=== PATIENT | male | born 1955 | race Caucasian/White ===

== ENCOUNTER 2016-10-23 07:36 | Inpatient (IN) | payer BC, OTHER ==
[~2016-10-23] VITALS: Ht 182.9 cm; Wt 81.6 kg
[2016-10-23] MEDS ORDERED: ALLO300T2 PO (07:48)
[2016-10-23] MEDS ORDERED: MELO15TA39 (07:48)
[2016-10-23] MEDS ORDERED: AMLO5TAB2 PO (07:48)
[2016-10-23] MEDS ORDERED: HYDR-3820 PO (07:48)
[2016-10-23] MEDS ORDERED: ENAL20TA PO (07:48)
--- NOTE | 2016-10-23 07:49 | ED Abdominal Pain ---
General Chief Complaint: Fever-Adult/Adol Stated Complaint: BACK ACHE,SWEAT,FEVER Source of Information: Patient, Family Exam Limitations: No Limitations History of Present Illness Time Seen By Provider: 08:10 Initial Comments This 61-year-old male presents with a 2 day history of fever and backache. The patient has had associated dysuria. The patient has had no associated headache or stiff neck, productive cough, chest pain or palpitations, blood in the stool or vomiting. The patient is under the care of Dr. Roman. The patient's significant past medical history includes hypertension and gout. Allergies and Home Medications Allergies Coded Allergies: No Known Drug Allergies (Unverified , 10/23/16) Home Medications Allopurinol 300 Mg Tablet, #90 (Reported) Amlodipine Besylate 5 Mg Tablet, #90 (Reported) Enalapril Maleate 20 Mg Tablet, #90 (Reported) Hydrocodone/Acetaminophen 1 Each Tablet, #60 (Reported) Meloxicam 15 Mg Tablet, #30 (Reported) Review of Systems Constitutional: No chills, fever, malaise EENTM: No Blurred Vision Respiratory: Denies Cough Cardiovascular: Denies Chest Pain Gastrointestinal: Denies Abdominal Pain Genitourinary: Burning, Discharge, Frequency, Denies Flank Pain Musculoskeletal: back pain Skin: No rash Psychiatric/Neurological: No Symptoms Reported Endocrine: No Symptoms Reported Hematologic/Lymphatic: No Symptoms Reported Past Vsqwilt-Glxict-Kfnlqq Hx Patient Social History Recent Foreign Travel: No Contact w/Someone Who Travel: No Reviewed Nursing Assessment Reviewed/Agree w Nursing PMH: Yes Physical Exam Vital Signs VS - Last 72 Hours, by Label 10/23/16 07:50 Temp 98.6 Pulse 103 Resp 18 B/P (MAP) 141/89 Capillary Refill : General Appearance: WD/WN, mild distress HEENT: PERRL/EOMI, normal ENT inspection Neck: non-tender, supple, normal inspection Respiratory: lungs clear, normal breath sounds, no respiratory distress Cardiovascular: normal peripheral pulses, regular rate, rhythm Gastrointestinal: normal bowel sounds Extremities: normal range of motion, non-tender, normal inspection Back: normal inspection, other (mild bilateral flank tenderness) Neurologic/Psychiatric: no motor/sensory deficits, alert, normal mood/affect, oriented x 3 Skin: normal color, warm/dry Focused Exam Lactic Acid Level Laboratory Tests Test 10/23/16 07:55 Lactic Acid Level 1.04 MMOL/L (0.50-2.00) Progress/Results/Core Measures Results/Orders Lab Results Laboratory Tests Test 10/23/16 07:55 10/23/16 08:10 Range/Units White Blood Count 21.9 H 4.3-11.0 10^3/uL Red Blood Count 4.73 4.35-5.85 10^6/uL Hemoglobin 14.6 13.3-17.7 G/DL Hematocrit 44 40-54 % Mean Corpuscular Volume 92 80-99 FL Mean Corpuscular Hemoglobin 31 25-34 PG Mean Corpuscular Hemoglobin Concent 33 32-36 G/DL Red Cell Distribution Width 12.9 10.0-14.5 % Platelet Count 180 130-400 10^3/uL Mean Platelet Volume 10.4 7.4-10.4 FL Neutrophils (%) (Auto) 85 H 42-75 % Lymphocytes (%) (Auto) 6 L 12-44 % Monocytes (%) (Auto) 9 0-12 % Eosinophils (%) (Auto) 0 0-10 % Basophils (%) (Auto) 0 0-10 % Neutrophils # (Auto) 18.6 H 1.8-7.8 X 10^3 Lymphocytes # (Auto) 1.2 1.0-4.0 X 10^3 Monocytes # (Auto) 2.0 H 0.0-1.0 X 10^3 Eosinophils # (Auto) 0.0 0.0-0.3 10^3/uL Basophils # (Auto) 0.0 0.0-0.1 10^3/uL Sodium Level 135 135-145 MMOL/L Potassium Level 4.3 3.6-5.0 MMOL/L Chloride Level 103 98-107 MMOL/L Carbon Dioxide Level 21 21-32 MMOL/L Anion Gap 11 5-14 MMOL/L Blood Urea Nitrogen 12 7-18 MG/DL Creatinine 0.86 0.60-1.30 MG/DL Estimat Glomerular Filtration Rate > 60 BUN/Creatinine Ratio 14 0-20 Lactic Acid Level 1.04 0.50-2.00 MMOL/L Calcium Level 9.7 8.5-10.1 MG/DL Aspartate Amino Transf (AST/SGOT) 21 5-34 U/L Alanine Aminotransferase (ALT/SGPT) 20 0-55 U/L Alkaline Phosphatase 70 40-136 U/L Total Protein 7.7 6.4-8.2 GM/DL Albumin 4.0 3.2-4.5 GM/DL Urine Color YELLOW Urine Clarity SLIGHTLY CLOUDY Urine pH 7 5-9 Urine Specific [place] 1.010 L 1.016-1.022 Urine Protein 2+ H NEGATIVE Urine Glucose (UA) NEGATIVE NEGATIVE Urine Ketones 3+ H NEGATIVE Urine Nitrite POSITIVE H NEGATIVE Urine Bilirubin NEGATIVE NEGATIVE Urine Urobilinogen NORMAL NORMAL MG/DL Urine Leukocyte Esterase 3+ H NEGATIVE Urine RBC (Auto) 3+ H NEGATIVE Urine RBC 2-5 H /HPF Urine WBC >100 H /HPF Urine Squamous Epithelial Cells RARE /HPF Urine Crystals NONE /LPF Urine Bacteria LARGE H /HPF Urine Casts NONE /LPF Urine Mucus NEGATIVE /LPF Urine Culture Indicated YES My Orders Orders - JOSEPH SILVERMAN MD Cbc With Automated Diff (10/23/16 07:50) Comprehensive Metabolic Panel (10/23/16 07:50) Ua Culture If Indicated (10/23/16 07:50) Lactic Acid Analyzer (10/23/16 07:50) Blood Culture (10/23/16 07:50) Ns Iv 1000 Ml (Sodium Chloride 0.9%) (10/23/16 08:00) Ibuprofen Tablet (Motrin Tablet) (10/23/16 08:00) Fentanyl Injection (Sublimaze Injection (10/23/16 08:00) Manual Differential (10/23/16 07:55) Blood Culture (10/23/16 08:22) Urine Culture (10/23/16 08:10) Medications Given in ED Current Medications Medications Dose Ordered Sig/Jian Route Start Time Stop Time Status Last Admin Dose Admin Fentanyl Citrate 50 mcg ONCE ONCE IVP 10/23/16 08:00 10/23/16 08:01 DC 10/23/16 08:08 50 MCG Ibuprofen 800 mg ONCE ONCE PO 10/23/16 08:00 10/23/16 08:01 DC 10/23/16 08:08 800 MG Vital Signs/I&O Vital Sign - Last 12Hours 10/23/16 07:50 Temp 98.6 Pulse 103 Resp 18 B/P (MAP) 141/89 Progress Note : Time: 08:30 Progress Note The patient's white count was 22,000. The patient's urine was consistent with a significant urinary tract infection. The patient's lactic acid was 1.04. 2 blood cultures were done. The patient received 2 g Rocephin IV. Telephone consultation was undertaken with Dr. Russ who is kind enough to admit the patient for further evaluation and care. Departure Communication Time/Spoke to Admitting Phy: 08:[address] Russ. Impression Impression: Primary Impression: Pyelonephritis Disposition: ADMITTED INPATIENT Condition: Improved Decision to Admit Reason: Admit from ER (General) Decision to Admit/Date: Oct 23, 2016 Time/Decision to Admit Time: 08:31 Departure-Patient Inst. Referrals: ROBBIE ROMAN MD (PCP) Primary Care Physician JOSEPH SILVERMAN MD Oct 23, 2016 07:49
[2016-10-23] MEDS ORDERED: NS IV 1000 ML 1,000 ML IV SCH (08:00)
[2016-10-23] MEDS ORDERED: IBUPROFEN 800 MG (MOTRIN) TAB PO ONE (08:00)
[2016-10-23] MEDS ORDERED: fentaNYL INJECTION 100 MCG/2 ML AMP IVP ONE (08:00)
[2016-10-23 08:06] LABS: BASOPHILS % (AUTO) 0 % (0-10); EOSINOPHILS % (AUTO) 0 % (0-10); LYMPHOCYTES # (AUTO) 1.2 X 10^3 (1.0-4.0); LYMPHOCYTES % (AUTO) 6 % (12-44); MEAN CORPUSCULAR HEMOGLOBIN 31 PG (25-34); MEAN CORPUSCULAR HGB CONC 33 G/DL (32-36); MEAN CORPUSCULAR VOLUME 92 FL (80-99); MEAN PLATELET VOLUME 10.4 FL (7.4-10.4); MONOCYTES % (AUTO) 9 % (0-12); NEUTROPHILS # (AUTO) 18.6 X 10^3 (1.8-7.8); NEUTROPHILS % (AUTO) 85 % (42-75); PLATELET COUNT 180 10^3/uL (130-400); RED BLOOD COUNT 4.73 10^6/uL (4.35-5.85); RED CELL DISTRIBUTION WIDTH 12.9 % (10.0-14.5); WHITE BLOOD COUNT 21.9 10^3/uL (4.3-11.0)
[2016-10-23 08:14] LABS: BILIRUBIN,URINE NEGATIVE (NEGATIVE); KETONES,URINE 3+ (NEGATIVE); LEUKOCYTE ESTERASE ,URINE 3+ (NEGATIVE); NITRITE,URINE POSITIVE (NEGATIVE); PH,URINE 7 (5-9); PROTEIN,URINE 2+ (NEGATIVE); UROBILINOGEN,URINE NORMAL (NORMAL)
[2016-10-23 08:22] LABS: SQUAMOUS EPITHELIAL CELL,UR RARE /HPF; WBC,URINE >100 /HPF
[2016-10-23 08:27] LABS: ALANINE AMINOTRANSFERASE 20 U/L (0-55); ANION GAP 11 MMOL/L (5-14); ASPARTATE AMINO TRANSFERASE 21 U/L (5-34); BILIRUBIN,TOTAL 1.2 MG/DL (0.1-1.0); BLOOD UREA NITROGEN 12 MG/DL (7-18); BUN/CREATININE RATIO 14 (0-20); CALCIUM 9.7 MG/DL (8.5-10.1); CARBON DIOXIDE 21 MMOL/L (21-32); CHLORIDE 103 MMOL/L (98-107); CREATININE SERUM 0.86 MG/DL (0.60-1.30); GFR ESTIMATED > 60; GLUCOSE 178 MG/DL (70-105); HEMOLYSIS 7 (-100-29); ICTERUS 1.2 (-100-1.9); LIPEMIA -1 (-100-49); POTASSIUM 4.3 MMOL/L (3.6-5.0); SODIUM 135 MMOL/L (135-145); TOTAL PROTEIN 7.7 GM/DL (6.4-8.2)
[2016-10-23] MEDS ORDERED: cefTRIAXone INJECTION 2,000 MG in NS (IVPB) 50 ML IV ONE (08:30)
[2016-10-23 08:48] LABS: LYMPHOCYTES % (MANUAL) 4 %; NEUTROPHILS % (MANUAL) 90 %
[2016-10-23] MEDS ORDERED: ACETAMINOPHEN 500 MG TAB (TYLENOL) PO ONE (09:00)
[2016-10-23] MEDS ORDERED: ONDANSETRON 4 MG/2 ML (SDV) Z0FRAN IV PRN (09:15)
[2016-10-23] MEDS: NS IV 1000 ML 1,000 ML IV SCH ×2 (09:37→18:52)
[2016-10-23] MEDS: LACTULOSE SYRUP 10GM/15ML (ENULOSE) 30ML UDC PO SCH ×3 (10:16→18:53)
[2016-10-23] MEDS ORDERED: fentaNYL INJECTION 100 MCG/2 ML AMP IV PRN (11:00)
--- NOTE | 2016-10-23 11:41 | History & Physical-Hospitalist ---
HPI History of Present Illness: HPI/Chief Complaint CC: Fever and chills and dysuria HPI: This is a 61-year-old white male clinic patient of Dr. 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 for the past 35 years that presents to the emergency room this morning at 7 o'clock with fever chills and and ambulate urinate. He reports that the symptoms started Monday morning and had his daughter's wedding rehearsal at that point was taking ibuprofen and Tylenol for nonspecific fatigue and pain especially in the back that then progressed along the day of the wedding on Monday becoming feverish having sweats and chilling then began having problems urinating feeling like the urine was going the wrong direction. He was becoming very nauseated and the severity of his back pain was too much to bear so he presented to the emergency room found to have acute polynephritis with one-to-one fever and white count of 21.9. Patient feels much better since IV fluids anti-emetics and pain medication have been initiated. Source: patient Exam Limitations: no limitations Date Seen 10/23/16 Time Seen by Provider: 09:45 Attending Physician Junie Russ Floyd R MD Referring Physician Date of Admission Oct 23, 2016 at 08:30 Home Medications & Allergies Home Medications Reviewed patient Home Medication Reconciliation Form Allergies Allergies Coded Allergies No Known Drug Allergies (Unverified10/23/16) Past Ptdknkk-Aejgek-Bbaqnw Hx Patient Social History Marrital Status: Employed/Student: employed (35 years [employer]) Alcohol Use: Occasionally Uses Recreational Drug Use: No Smoking Status: Never a Smoker Physical Abuse Screen: No Sexual Abuse: No Recent Foreign Travel: No Contact w/other who traveled: No Recent Hopitalizations: No Recent Infectious Disease Expo: No Seasonal Allergies Seasonal Allergies: No Surgeries HX Surgeries: Yes Surgeries: Orthopedic (meniscus) Respiratory Hx Respiratory Disorders: No Cardiovascular Hx Cardiovascular Disorders: Yes Cardiac Disorders: Hypertension Neurological Hx Neurological Disorders: No Reproductive System Sexually Transmitted Disease: No HIV/AIDS: No Genitourinary Hx Genitourinary Disorders: No Gastrointestinal Hx Gastrointestinal Disorders: No Musculoskeletal Hx Musculoskeletal Disorders: No Musculoskeletal Disorders: Gout Endocrine Hx Endocrine Disorders: No HEENT HX ENT Disorders: No Hearing Impairment: Denies Cancer Hx Cancer: No Psychosocial Hx Psychiatric Problems: No Integumentary HX Skin/Integumentary Disorder: No Blood Transfusions Adverse Reaction to a Blood Tr: No Reviewed Nursing Assessment Reviewed/Agree w Nursing PMH: Yes Family Medical History Family Hx: Arthritis Cardiovascular disease Cataracts Diabetes mellitus Hypertension Kidney disease Myocardial infarction Review of Systems Date Seen by Provider: Oct 23, 2016 Time Seen by Provider: 09:45 Constitutional: see HPI, chills, diaphoresis, dizziness, fever, malaise, weakness EENTM: no symptoms reported Respiratory: no symptoms reported Cardiovascular: no symptoms reported Gastrointestinal: loss of appetite, nausea, vomiting Genitourinary: decreased output, dysuria, frequency, hematuria, hesitancy, pain Musculoskeletal: back pain Skin: no symptoms reported Psychiatric/Neurological: Anxiety All Other Systems Reviewed Negative Unless Noted: Yes Physical Exam Physical Exam Vital Signs Vital Sign - Last 12Hours 10/23/16 10/23/16 07:50 08:55 Temp 98.6 Pulse 103 Resp 18 B/P (MAP) 141/89 Pulse Ox 98 O2 Delivery Room Air Capillary Refill : Less Than 3 Seconds General Appearance: No Apparent Distress, WD/WN, Other (moderately acutely ill) Eyes: Bilateral Eye Normal Inspection, Bilateral Eye PERRL HEENT: PERRL/EOMI, Normal ENT Inspection, Pharynx Normal Neck: Full Range of Motion, Normal Inspection, Non Tender, Supple, Carotid Bruit Respiratory: Chest Non Tender, Lungs Clear, Normal Breath Sounds, No Accessory Muscle Use, No Respiratory Distress Cardiovascular: Regular Rate, Rhythm, No Edema, No Gallop, No JVD, No Murmur, Normal Peripheral Pulses Gastrointestinal: Normal Bowel Sounds, No Organomegaly, No Pulsatile Mass, Non Tender, Soft Back: Normal Inspection, No CVA Tenderness, No Vertebral Tenderness Extremity: Normal Capillary Refill, Normal Inspection, Normal Range of Motion, Non Tender, No Calf Tenderness, No Pedal Edema Neurologic/Psychiatric: Alert, Oriented x3, No Motor/Sensory Deficits, Normal Mood/Affect Skin: Normal Color, Damp Lymphatic: No Adenopathy Results Results/Procedures Lab Laboratory Tests 10/23/16 07:55 Assessment/Plan Admission Diagnosis Assessment: Acute pyelonephritis with fever and chills and leukocytosis of 21,000 History of hypertension Assessment and Plan Plan: Empiric antibiotics of Rocephin Pancultured Await urine culture results IV fluids Anti-medics Antipyretics SCDs Clinical Quality Measures DVT/VTE Risk/Contraindication: Risk Factor Score Per Nursin RFS Level Per Nursing on Admit: 3=High JUNIE RUSS DO Oct 23, 2016 11:41
[2016-10-23 12:00] VITALS: BP 98/60
[2016-10-23 16:00] VITALS: BP 130/60
[2016-10-23] MEDS: ACETAMINOPHEN 500 MG TAB (TYLENOL) PO PRN (16:29)
[2016-10-23 20:00] VITALS: BP 122/69
[2016-10-23] MEDS: ZOLPIDEM 5 MG (AMBIEN) TAB PO SCH (22:00)
[2016-10-24] VITALS (7 sets, daily range): BP systolic 100–148; BP diastolic 63–77
[2016-10-24] MEDS: IBUPROFEN 800 MG (MOTRIN) TAB PO PRN ×2 (03:14→19:47)
[2016-10-24] MEDS: NS IV 1000 ML 1,000 ML IV SCH ×2 (05:00→16:00)
[2016-10-24 06:47] LABS: BASOPHILS % (AUTO) 0 % (0-10); EOSINOPHILS % (AUTO) 0 % (0-10); LYMPHOCYTES % (AUTO) 8 % (12-44); MEAN CORPUSCULAR HEMOGLOBIN 31 PG (25-34); MEAN CORPUSCULAR HGB CONC 33 G/DL (32-36); MEAN CORPUSCULAR VOLUME 95 FL (80-99); MEAN PLATELET VOLUME 10.9 FL (7.4-10.4); MONOCYTES # (AUTO) 1.4 X 10^3 (0.0-1.0); MONOCYTES % (AUTO) 11 % (0-12); NEUTROPHILS # (AUTO) 10.3 X 10^3 (1.8-7.8); NEUTROPHILS % (AUTO) 81 % (42-75); PLATELET COUNT 154 10^3/uL (130-400); RED BLOOD COUNT 4.39 10^6/uL (4.35-5.85); WHITE BLOOD COUNT 12.7 10^3/uL (4.3-11.0)
[2016-10-24 07:06] LABS: ALANINE AMINOTRANSFERASE 20 U/L (0-55); ALBUMIN 3.5 GM/DL (3.2-4.5); ANION GAP 9 MMOL/L (5-14); ASPARTATE AMINO TRANSFERASE 19 U/L (5-34); BILIRUBIN,TOTAL 0.6 MG/DL (0.1-1.0); BLOOD UREA NITROGEN 13 MG/DL (7-18); BUN/CREATININE RATIO 15 (0-20); CALCIUM 9.1 MG/DL (8.5-10.1); CARBON DIOXIDE 23 MMOL/L (21-32); CHLORIDE 108 MMOL/L (98-107); CREATININE SERUM 0.88 MG/DL (0.60-1.30); GFR ESTIMATED > 60; GLUCOSE 135 MG/DL (70-105); HEMOLYSIS 7 (-100-29); ICTERUS 0.6 (-100-1.9); LIPEMIA -1 (-100-49); POTASSIUM 4.3 MMOL/L (3.6-5.0); SODIUM 140 MMOL/L (135-145); TOTAL PROTEIN 6.6 GM/DL (6.4-8.2)
[2016-10-24] MEDS ORDERED: ACET-2267 PO (08:02)
[2016-10-24] MEDS ORDERED: IBUP-30 PO (08:02)
[2016-10-24] MEDS: LACTULOSE SYRUP 10GM/15ML (ENULOSE) 30ML UDC PO SCH ×3 (10:07→19:51)
[2016-10-24] MEDS: cefTRIAXone 1 GM/NS 50 ML IVPB IV SCH ×2 (10:07)
--- NOTE | 2016-10-24 10:54 | Progress Note-Hospitalist ---
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 He was admitted over the weekend after presenting with a course of fever and chills and a white count of 21,000. This was consistent with pyelonephritis. He was able to tough it out that through his daughter's wedding on Monday before coming to the emergency room. The early report this morning I confirmed that he was growing Escherichia coli from both the blood in the urine. He reports he is beginning to feel better. His peak temperature over the past 24 hours was 101.2. Physical exam: He is alert and oriented he appears flushed. Lungs are clear to auscultation. CV is regular without murmur. Abdomen is soft without tenderness to palpation. Extremities show no pedal edema. Impression: Sepsis. 2.pyelonephritis with Escherichia coli. Labs Laboratory Tests 10/23/16 07:55 10/24/16 06:20 VAISHALI GREGORY MD Oct 24, 2016 10:54
[2016-10-24] MEDS ORDERED: HYDROcodone/APAP 10 MG/325 MG (LORTAB) TAB PO PRN (11:00)
[2016-10-24] MEDS ORDERED: IBUPROFEN TABLET 200 MG TAB PO PRN (11:00)
[2016-10-24] MEDS ORDERED: ACETAMINOPHEN 500 MG TAB (TYLENOL) PO PRN (11:00)
[2016-10-24 19:17] LABS: BILIRUBIN,URINE NEGATIVE (NEGATIVE); KETONES,URINE NEGATIVE (NEGATIVE); LEUKOCYTE ESTERASE ,URINE NEGATIVE (NEGATIVE); NITRITE,URINE NEGATIVE (NEGATIVE); PH,URINE 6.5 (5-9); PROTEIN,URINE 2+ (NEGATIVE); UROBILINOGEN,URINE 1 MG/DL (NORMAL)
[2016-10-24] MEDS: ZOLPIDEM 5 MG (AMBIEN) TAB PO SCH (20:39)
[2016-10-24] MEDS: ALLOPURINOL 300 MG (ZYLOPRIM) TAB PO SCH (20:40)
[2016-10-24] MEDS: amLODIPine 5 MG (NORVASC) TAB PO SCH (20:40)
[2016-10-25] VITALS (7 sets, daily range): BP systolic 109–141; BP diastolic 69–82
[2016-10-25] MEDS: NS IV 1000 ML 1,000 ML IV SCH ×3 (01:29→14:15)
[2016-10-25] MEDS: ACETAMINOPHEN 500 MG TAB (TYLENOL) PO PRN ×2 (07:22→23:40)
[2016-10-25] MEDS: cefTRIAXone 1 GM/NS 50 ML IVPB IV SCH ×2 (08:13)
[2016-10-25] MEDS: LACTULOSE SYRUP 10GM/15ML (ENULOSE) 30ML UDC PO SCH ×3 (08:17→19:36)
--- NOTE | 2016-10-25 10:53 | Progress Note-Hospitalist ---
Standard Progress Note Progress Notes/Assess & Plan Date Seen 10/25/16 Time Seen by Provider: 10:25 Diagnosis Assessment: Acute pyelonephritis with fever and chills and leukocytosis of 21,000 History of hypertension Assess & Plan/Chief Complaint And so are we ready to go 20 I can I I have other things to do so. Suture were is a The patient exhibited fever through the night both around midnight and again at the [id number] time frame. The MAXIMUM TEMPERATURE was 102.4. He reported both sweats and aches during this period of time. This has broken that he became anxious about what was going on. He was assured that this was not unfortunate but not a complication. His Escherichia coli is widely sensitive. The fever may have been toxins. Physical exam: His face is somewhat flushed. Skin is dry. Lungs are clear to auscultation. CV shows a rate of 105. Impression: Escherichia coli urinary tract infection with septicemia. Plan: Continue IV antibiotics. The patient was assured that he would be kept as an inpatient until he had nearly 24 hours afebrile. Labs Laboratory Tests 10/24/16 06:20 VAISHALI GREGORY MD Oct 25, 2016 10:53
[2016-10-25] MEDS: IBUPROFEN 800 MG (MOTRIN) TAB PO PRN (14:59)
[2016-10-25] MEDS: ALLOPURINOL 300 MG (ZYLOPRIM) TAB PO SCH (20:36)
[2016-10-25] MEDS: ZOLPIDEM 5 MG (AMBIEN) TAB PO SCH (20:36)
[2016-10-25] MEDS: amLODIPine 5 MG (NORVASC) TAB PO SCH (20:36)
[2016-10-26] MEDS: NS IV 1000 ML 1,000 ML IV SCH (01:25)
[2016-10-26 04:20] VITALS: BP 117/76
[2016-10-26 08:00] VITALS: BP 149/89
[2016-10-26] MEDS: cefTRIAXone 1 GM/NS 50 ML IVPB IV SCH ×2 (08:15)
[2016-10-26] MEDS: LACTULOSE SYRUP 10GM/15ML (ENULOSE) 30ML UDC PO SCH (08:15)
[2016-10-26] MEDS ORDERED: CEFD300C3 PO (11:16)
--- NOTE | 2016-10-26 13:18 | Discharge Summary-Hospitalist ---
Diagnosis/Chief Complaint Date of Admission Oct 23, 2016 at 08:30 Date of Discharge Oct 26, 2016 at 11:55 Discharge Date: Oct 26, 2016 Admission Diagnosis Assessment: Acute pyelonephritis with fever and chills and leukocytosis of 21,000 History of hypertension Discharge Diagnosis Assessment: Acute pyelonephritis with fever and chills and leukocytosis of 21,000 History of hypertension Plan: Empiric antibiotics of Rocephin Pancultured Await urine culture results IV fluids Anti-medics Antipyretics SCDs Reason Hospital Visit/Course CC: Fever and chills and dysuria HPI: This is a 61-year-old white male clinic patient of Dr. 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 He reports that the symptoms started Monday morning and had his daughter's wedding rehearsal at that point was taking ibuprofen and Tylenol for nonspecific fatigue and pain especially in the back that then progressed along the day of the wedding on Monday becoming feverish having sweats and chilling then began having problems urinating feeling like the urine was going the wrong direction. He was becoming very nauseated and the severity of his back pain was too much to bear so he presented to the emergency room found to have acute polynephritis with one-to-one fever and white count of 21.9. Patient feels much better since IV fluids anti-emetics and pain medication have been initiated. Note from 10/26/16: Patient doing well overall still has periodic low-grade fevers and I counseled him that that would be a possibility but to maintain Tylenol and ibuprofen regimen as instructed Will place on Omnicef for a total of 6 more days due to bacteremia of Escherichia coli He will have close follow-up with Dr. Roman next week No fever, vital signs stable, pleasant, improved Regular rate and rhythm, clear to auscultation bilaterally No edema Hospital course: Patient had a lengthy hospital course he was empirically placed on Rocephin E coli resulted on urine culture and blood culture and fever persisted that was monitored given antipyretics and maintained IV fluids and ambulation and pain control and improved enough on day of discharge she was feeling well enough to tolerate oral antibiotics will have close follow-up his primary care provider. Discharge Summary Discharge Physical Examination Allergies: Coded Allergies: No Known Drug Allergies (Unverified , 10/23/16) Vitals & I&Os Vital Signs Date Time Temp Pulse Resp B/P (MAP) Pulse Ox O2 Delivery O2 Flow Rate FiO2 10/26/16 11:55 10/26/16 08:00 98.7 72 20 98 Room Air Hospital Course Labs (last 24 hrs) Microbiology 10/23/16 Blood Culture - Preliminary, Resulted No growth 10/23/16 Urine Culture - Final, Complete Escherichia Coli Discharge Home Medications: Active Scripts Active Cefdinir 300 Mg Capsule 300 Mg PO BID Reported Tylenol Extra Strength (Acetaminophen) 500 Mg Tablet 500-1,000 Mg PO Q6H PRN ALTERNATES WITH IBU Advil (Ibuprofen) 200 Mg Tablet 800 Mg PO TID PRN ALTERNATES WITH TYLENOL Allopurinol 300 Mg Tablet 300 Mg PO HS Hydrocodon-Acetaminophn 10-325 (Hydrocodone/Acetaminophen) 1 Each Tablet 0.5-1 Tab PO Q6H PRN Amlodipine Besylate 5 Mg Tablet 5 Mg PO HS Enalapril Maleate 20 Mg Tablet 20 PO HS Instructions to patient/family Please see electonic discharge instructions given to patient. Clinical Quality Measures DVT/VTE Risk/Contraindication: Risk Factor Score Per Nursin RFS Level Per Nursing on Admit: 3=High CHRISTIANO LAN DO Oct 26, 2016 13:18
== END 2016-10-26 11:55 | disposition home or self-care (01) | DRG 690 ==
LOC: EDUNIT# 07:36 → ER 07:40 → 4TH 08:30
PROVIDERS: ADMIT Internal Medicine; ATTEND Internal Medicine
DX: N10 Acute pyelonephritis (principal); I10 Essential (primary) hypertension; M10.9 Gout, unspecified; B96.20 Unspecified Escherichia coli [E. coli] as the cause of diseases classified elsewhere
CPT/HCPCS: 36415; 80053; 81000; 83605; 85007; 85025; 85027; 87040; 87088; 87186

== ENCOUNTER 2016-11-16 05:40 | Outpatient (CLI) | payer BC ==
[~2016-11-16] VITALS: Ht 182.9 cm; Wt 94.3 kg
[~2016-11-16 05:40] MED LIST: ACET-2267 PO; ALLO300T2 PO; AMLO5TAB2 PO; CEFD300C3 PO; ENAL20TA PO; HYDR-3820 PO; IBUP-30 PO; MELO15TA39
== END 2016-11-16 10:15 ==
LOC: PREOP 05:40
PROVIDERS: ATTEND Surgery
DX: Z01.818 Encounter for other preprocedural examination (principal); Z12.11 Encounter for screening for malignant neoplasm of colon

== ENCOUNTER 2016-11-18 12:27 | Day surgery (SDC) | payer BC ==
[~2016-11-18] VITALS: Ht 182.9 cm; Wt 94.3 kg
[2016-11-18 12:51] VITALS: BP 151/78
[2016-11-18] MEDS ORDERED: NS IV 500 ML 500 ML IV PRN (12:55)
--- NOTE | 2016-11-18 13:57 | Conscious Sedation/ASA ---
Conscious Sedation Pre-Proced Time Reviewed: 13:57 ASA Class: 2 Airway Mallampati Classification: ([place]-apache appropriate class) I. II. III, IV Lungs Heart ASA score ASA 1: a normal healthy patient ASA 2: a patient with a mild systemic disease (mid diabetes, controlled hypertension, obesity ASA 3: a patient with a severe systemic disease that limits activity (angina , COPD, prior Myocardial infarction) ASA 4: a patient with an incapacitating disease that is a constant threat to life (CHF, renal failure) ASA 5: a moribund patient not expected to survive 24 hrs. (ruptured aneurysm) ASA 6: a declared brain patient whose organs are being harvested. For emergent operations, add the letter E after the classification Grade 1 Sedation Plan: Discussed options with patient/fam Note The patient is an appropriate candidate to undergo the planned procedure, sedation, and anesthesia. The patient immediately re-assessed prior to indication. TRACY MARTE MD Nov 18, 2016 1:57 pm
--- NOTE | 2016-11-18 13:57 | History & Physicial ---
History of Present Illness History of Present Illness Reason for visit/HPI to undergo screening colonoscopy. No family history of colon cancer or polyps Date of Admission Date Seen by Provider: Nov 18, 2016 Time Seen by Provider: 13:55 I consulted on this patient on 11/18/16 13:55 Attending Physician Tracy Marte MD Admitting Physician Edis Roman MD Consult Allergies and Home Medications Allergies Coded Allergies: No Known Drug Allergies (Unverified , 10/23/16) Home Medications Acetaminophen 500 Mg Tablet, 500-1,000 MG PO Q6H PRN for PAIN-MILD, (Reported) ALTERNATES WITH IBU Allopurinol 300 Mg Tablet, 300 MG PO HS, (Reported) Amlodipine Besylate 5 Mg Tablet, 5 MG PO HS, (Reported) Enalapril Maleate 20 Mg Tablet, 20 MG PO HS, (Reported) Hydrocodone/Acetaminophen 1 Each Tablet, 0.5-1 TAB PO Q6H PRN for PAIN-MODERATE, (Reported) Ibuprofen 200 Mg Tablet, 800 MG PO TID PRN for PAIN-MILD, (Reported) ALTERNATES WITH TYLENOL Past Meyjvmc-Gqgayx-[place] Hx Patient Social History Marrital Status: Employed/Student: employed Alcohol Use: Regular Use Recreational Drug Use: No Smoking Status: Never a Smoker Recent Foreign Travel: No Contact w/other who traveled: No Recent Hopitalizations: No Recent Infectious Disease Expo: No Immunizations Up To Date Tetanus Booster (TDap): Unknown Seasonal Allergies Seasonal Allergies: No Surgeries HX Surgeries: Yes (knee scope, ) Surgeries: Orthopedic Respiratory Hx Respiratory Disorders: No Cardiovascular Hx Cardiovascular Disorders: Yes Cardiac Disorders: Hypertension Neurological Hx Neurological Disorders: No Reproductive System Hx Reproductive Disorders: No Sexually Transmitted Disease: No HIV/AIDS: No Genitourinary Hx Genitourinary Disorders: No Gastrointestinal Hx Gastrointestinal Disorders: No Musculoskeletal Hx Musculoskeletal Disorders: Yes Musculoskeletal Disorders: Arthritis, Gout Endocrine Hx Endocrine Disorders: No HEENT HX ENT Disorders: No Hearing Impairment: Denies Cancer Hx Cancer: No Psychosocial Hx Psychiatric Problems: No Integumentary HX Skin/Integumentary Disorder: No Blood Transfusions Hx Blood Disorders: No Adverse Reaction to a Blood Tr: No Family Medical History Family Hx: Arthritis Cardiovascular disease Cataracts Diabetes mellitus Hypertension Kidney disease Myocardial infarction Constitutional: no symptoms reported Respiratory: no symptoms reported Cardiovascular: no symptoms reported Gastrointestinal: no symptoms reported Genitourinary: no symptoms reported Musculoskeletal: gout, joint pain Skin: no symptoms reported Psychiatric/Neurological: No Symptoms Reported Physical Exam Vital Signs Vital Sign - Last 12Hours 11/18/16 12:51 Temp 99.6 Pulse 60 Resp 16 B/P (MAP) 151/78 Pulse Ox 97 O2 Delivery Room Air Capillary Refill : General Appearance: No Apparent Distress HEENT: Normal ENT Inspection Neck: Normal Inspection Respiratory: Lungs Clear Cardiovascular: Regular Rate, Rhythm Gastrointestinal: Non Tender, Soft Rectal: Deferred Extremity: Normal Inspection Neurologic/Psychiatric: Alert, Oriented x3 Skin: Warm/Dry Assessment/Plan Assessment and Plan Gentleman here to undergo screening colonoscopy. No family history. Details of the procedure, polyps diverticulosis etc. discussed. Post polypectomy bleeding and iatrogenic perforation discussed in detail. He seems to be in agreement to proceed Problems: TRACY MARTE MD Nov 18, 2016 1:57 pm
[2016-11-18] MEDS ORDERED: fentaNYL INJECTION 100 MCG/2 ML AMP ONE (14:14)
[2016-11-18] MEDS ORDERED: MIDAZOLAM 2 MG/2 ML (VERSED) VIAL ONE ×3 (14:15)
[2016-11-18] MEDS: fentaNYL INJECTION 100 MCG/2 ML AMP IVP PRN ×2 (14:20→14:23)
[2016-11-18] MEDS: MIDAZOLAM 2 MG/2 ML (VERSED) VIAL IVP PRN ×3 (14:21→14:27)
--- NOTE | 2016-11-18 14:44 | Endo Procedure Record ---
Endo Procedure Report Date of Procedure Nov 18, 2016 Surgeon (s) TRACY MARTE MD Post Procedure/Op Diagnosis sigmoid diverticulosis Procedure Performed colonoscopy to cecum Description of Procedure Anesthesia Type: Conscious Sedation Specimen(s) collected/removed none Description of the Procedure Indication for procedure:this gentleman came in for screening colonoscopy. He denied any family history of colon cancer. Informed consent was obtained after reviewing the procedure in detail. Description of procedure; He was placed in left lateral decubitus position and his vital signs were monitored. Conscious sedation was achieved using Versed and fentanyl. Digital rectal examination was unremarkable. The colonoscope was then introduced into the rectum and advanced all the way up to the cecum. Quality of bowel preparation was acceptable. The scope was then withdrawn slowly and the mucosa examined in a systematic fashion. FINDINGS: Very few sigmoid diverticula He tolerated the procedure well and was taken back to the nursing area in a stable condition. Impression: Screening colonoscopy. No polyps. No family history. Recommend repeating in 5 years. Copies To: ROBBIE HARRIS MD, XAVIER M MD Nov 18, 2016 2:44 pm
--- NOTE | 2016-11-18 14:46 | Discharge Inst-Simple/Standard ---
Discharge Inst-Standard Discharge Medications New, Converted or Re-Newed RX: Other Patient Instructions/Follow Up Plan of Care/Instructions/FU: repeat colonoscopy 10 years Activity as Tolerated: Yes Discharge Diet: No Restrictions TRACY MARTE MD Nov 18, 2016 2:46 pm
[2016-11-18 15:00] VITALS: BP 120/80
[2016-11-18 15:26] VITALS: BP 115/76
[2016-11-18 15:27] VITALS: BP 115/76
== END 2016-11-18 15:30 | disposition home or self-care (01) ==
LOC: ENDO 12:27
PROVIDERS: ATTEND Surgery
DX: Z12.11 Encounter for screening for malignant neoplasm of colon (principal); K57.30 Diverticulosis of large intestine without perforation or abscess without bleeding; I10 Essential (primary) hypertension

== ENCOUNTER → 2016-11-25 | Outpatient (CLI) | payer BC ==
--- NOTE | 2016-11-25 12:04 | Diagnostic Imaging Report ---
PROCEDURE: CT abdomen and pelvis without contrast. TECHNIQUE: Multiple contiguous axial images were obtained through the abdomen and pelvis without the use of intravenous contrast. INDICATION: Gross hematuria. FINDINGS: Renal outlines are smooth. Noncontrasted images show no evidence of renal masses. There are renal calculi. There is calcification in the mid calyx on the left measuring 5 mm. There also is some subtle calcification of the lower pole renal pyramid. No renal obstruction. The ureters appear normal. The bladder is normal. No calculi in the bladder. No pelvic masses. Prostate is not enlarged. Lung bases are clear. Liver appears normal. Gallbladder and bile ducts are normal. Pancreas and spleen are normal. The adrenal glands are not enlarged. Stomach and small bowel are not distended. Colon shows normal stool and gas pattern. Appendix is visualized and normal. There is diverticulosis of the sigmoid colon without evidence of diverticulitis. There is indirect inguinal hernia on the left with small amount of abdominal fat. IMPRESSION: 1. Nephrolithiasis of the left kidney without evidence of obstruction. No masses are demonstrated on noncontrasted study. 2. Diverticulosis of the sigmoid colon without evidence of diverticulitis. 3. Indirect small angle hernia on the left. Dictated by: Dictated on workstation # [id number]
== END ==
LOC: RAD 10:47
PROVIDERS: ATTEND Urology
DX: N20.0 Calculus of kidney (principal); K57.30 Diverticulosis of large intestine without perforation or abscess without bleeding; K40.90 Unilateral inguinal hernia, without obstruction or gangrene, not specified as recurrent
CPT/HCPCS: 74176

== ENCOUNTER → 2016-12-02 | Outpatient (CLI) | payer BC ==
--- NOTE | 2016-12-02 12:34 | Diagnostic Imaging Report ---
EXAM: Supine view of the abdomen. INDICATION: Hematuria. FINDINGS: There is a calcification projecting over the left flank measuring 7 mm, may relate to a kidney stone. No definite right renal stone or other suspicious calcifications along the ureters or bladder. Unremarkable bowel gas pattern is seen. IMPRESSION: Suggestion of a 7 mm left kidney stone. Dictated by: Dictated on workstation # [id number]
== END ==
LOC: RAD 11:50
PROVIDERS: ATTEND Urology
DX: N20.0 Calculus of kidney (principal)
CPT/HCPCS: 74000

== ENCOUNTER 2017-02-17 07:58 | Outpatient (RCR) | payer BC | END 2017-03-28 11:23 | disposition home or self-care (01) | PROVIDERS: ATTEND Nurse Practitioner Family | DX: M25.551 Pain in right hip (principal) ==

== ENCOUNTER → 2020-02-17 | Outpatient (CLI) | payer BC ==
[~2020-02-17] MED LIST changes: +ACHYD1T PO; -AMLO5TAB2 PO; +AMLO5TAB9 PO; -ENAL20TA PO; +ENAL20TA16 PO; -HYDR-3820 PO
== END ==
LOC: LABNPT 05:25
PROVIDERS: ATTEND Orthopaedic Surgery
DX: Z01.812 Encounter for preprocedural laboratory examination (principal); Z20.828 Contact with and (suspected) exposure to other viral communicable diseases
CPT/HCPCS: 87635